=== PATIENT | female | born 1995 | race Caucasian/White ===

== ENCOUNTER 2017-04-29 19:53 | Emergency (ER) | payer MEDICAID, OTHER ==
[2017-04-29 20:18] LABS: Bilirubin Negative (Negative); Blood, Urine Negative (Negative); Glucose, Urine (Dipstick) Negative (Negative); Ketone, Urine Negative (Negative); Nitrite Negative (Negative); Protein, Urine (Dipstick) Negative (Neg-Trace); Urobilinogen 0.2 mg/dL (0.2-1.0)
[2017-04-29 20:50] LABS: #Basophils 0.1 thou/uL (0.0-0.2); #Lymphocytes 1.7 thou/uL (1.20-3.40); #Monocytes 0.3 thou/uL (0.11-0.59); #Neutrophils 5.6 thou/uL (1.40-6.50); %Basophils 0.7 % (0.0-1.0); %Eosinophils 0.5 % (0.0-10.0); %Lymphocytes 22.3 % (21.0-51.0); %Monocytes 3.9 % (0.0-10.0); Hematocrit 33.9 % (36.0-47.0); Mean Platelet Volume 6.6 fL (7.4-10.4); Red Blood Cell (RBC) Count 3.95 mill/uL (4.20-5.40); White Blood Cell (WBC) Count 7.6 thou/uL (4.8-10.8)
[2017-04-29 21:07] LABS: ALT (SGPT) Less than 7 U/L (8-55); AST (SGOT) 12 U/L (5-34); Alkaline Phosphatase 86 U/L (40-150); Anion Gap 9 mmol/L (10-20); BUN (Urea Nitrogen) 6 mg/dL (7.0-18.7); Bilirubin, Total 0.6 mg/dL (0.2-1.2); Calc. Creatinine Clearance 0 mL/min (70-130); Calcium 9.4 mg/dL (7.8-10.44); Carbon Dioxide 25 mmol/L (22-29); Chloride 107 mmol/L (98-107); Estimated GFR-MDRD Greater than 90; Globulin 3.5 g/dL (2.4-3.5); Protein, Total 7.2 g/dL (6.0-8.3)
--- NOTE | 2017-04-29 22:13 | ULT ---
EXAM: PELVIC ULTRASOUND 04/29/17 HISTORY: Pain x2 days. No bleeding. COMPARISON: None. TECHNIQUE: Transabdominal and endolabial imaging of the gravid uterus is performed. FINDINGS: A single intrauterine gestation, variable presentation. Anterior placenta. Placental tip is approxima tely 2.7 cm from the inner cervical os. Cervix measures approximately 4.9 cm. There are heart tones with a rate of 157 beats per minute. BIOMETRY: BPD 3.71 cm 17 weeks, 2 days Head circumference 14.95 cm 18 weeks, 0 days Abdominal circumference 13.42 cm 18 weeks, 6 days Femur length 2.76 cm 18 weeks, 3 days Average age by sonography is 18 weeks, 0 days. Estimated delivery date is 09/30/17. Estimated we ight is 247 grams. SURVEY: The following structures are adequately demonstrated: Four chamber heart, stomach, bladder, three ves ronan cord, cord insertion, nose and lips, cerebellum, lateral ventricle. Limited evaluation of the spi ne and kidneys. IMPRESSION: 1. Single intrauterine gestation as detailed above. There are heart tones with a rate of 1 57 beats per minute. 2. Average age by sonography is 18 weeks, 0 days. 3. Anterior placenta. Placenta appears to be low lying. Followup ultrasound is recommended. POS: [facility]
== END 2017-04-29 22:44 | disposition home or self-care (01) ==
LOC: ERS 19:53
DX: O99.89 Other specified diseases and conditions complicating pregnancy, childbirth and the puerperium (principal); R10.2 Pelvic and perineal pain; Z3A.19 19 weeks gestation of pregnancy
CPT/HCPCS: 36415; 76856; 80053; 81003; 84702; 85025; 86900; 86901

== ENCOUNTER 2017-08-15 21:45 | Day surgery (SDC) | payer BC, OTHER ==
[2017-08-15 23:12] LABS: #Eosinphils 0.1 thou/uL (0.0-0.7); #Lymphocytes 2.1 thou/uL (1.20-3.40); #Monocytes 0.7 thou/uL (0.11-0.59); #Neutrophils 9.7 thou/uL (1.40-6.50); %Basophils 0.3 % (0.0-1.0); %Eosinophils 0.4 % (0.0-10.0); %Lymphocytes 16.8 % (21.0-51.0); %Monocytes 5.6 % (0.0-10.0); %Neutrophils 76.8 % (42.0-75.0); Hemoglobin 11.3 g/dL (12.0-16.0); Mean Corpuscular HGB CONC 34.4 g/dL (32.0-36.0); Mean Corpuscular Hemoglobin 29.4 pg (27.0-31.0); Mean Corpuscular Volume 85.5 fl (81.0-99.0); Mean Platelet Volume 6.9 fL (7.4-10.4); Platelet Count 315 thou/uL (130-400); RBC Distribution Width 12.5 % (11.5-14.5); Red Blood Cell (RBC) Count 3.83 mill/uL (4.20-5.40); White Blood Cell (WBC) Count 12.6 thou/uL (4.8-10.8)
[2017-08-15 23:24] LABS: ALT (SGPT) 28 U/L (8-55); AST (SGOT) 74 U/L (5-34); Albumin 3.7 g/dL (3.5-5.0); Alkaline Phosphatase 211 U/L (40-150); Anion Gap 13 mmol/L (10-20); BUN (Urea Nitrogen) 5 mg/dL (7.0-18.7); Bilirubin, Total 0.8 mg/dL (0.2-1.2); Calc. Creatinine Clearance 0 mL/min (70-130); Calcium 9.9 mg/dL (7.8-10.44); Carbon Dioxide 23 mmol/L (22-29); Chloride 106 mmol/L (98-107); Estimated GFR-MDRD Greater than 90; Globulin 3.7 g/dL (2.4-3.5); Glucose 87 mg/dL (70-105); Lipase 21 U/L (8-78); Potassium 4.1 mmol/L (3.5-5.1); Protein, Total 7.4 g/dL (6.0-8.3); Sodium 138 mmol/L (136-145)
[2017-08-16 01:19] VITALS: BMI 34.7
--- NOTE | 2017-08-16 07:40 | ULT ---
PRELIMINARY REPORT/[facility]/EMERGENCY AFTER HOURS PROCEDURE: EXAM: US Abdomen Limited, Right Upper Quadrant EXAM DATE/TIME: Exam ordered 08/15/2017 11:46 PM CLINICAL HISTORY: 22 years old, female; Pain; Other: Chest/ ruq pain, elevated lfts; TECHNIQUE: Real-time ultrasound of the right upper quadrant with image documentation. COMPARISON: No relevant prior studies available. FINDINGS: Liver: Unremarkable. No mass. No intrahepatic bile duct dilation. Gallbladder: Cholelithiasis and gallbladder sludge. Gallbladder is distended. Sonographic Andrade's an d reported positive. No gallbladder wall thickening or pericholecystic fluid. Common bile duct: Unremarkable as visualized. No stones. No dilation. Pancreas: Unremarkable as visualized. Right kidney: Mild right hydronephrosis. No stones. IMPRESSION: 1. There is cholelithiasis and gallbladder sludge. Gallbladder is distended and sonographic Andrade si gn is reported as positive; however, there is no gallbladder wall thickening or pericholecystic fluid to convincingly indicate acute cholecystitis. 2. Mild right hydronephrosis. Thank you for allowing us to participate in the care of your patient. Dictated and Authenticated by: Adrian Jose MD 08/16/2017 12:27 AM Central Time ([place] & [place]) FINAL REPORT ULTRASOUND GALLBLADDER RIGHT UPPER QUADRANT: HISTORY: Pain. . COMPARISON: None. FINDINGS: Findings and impression are concordant with the preliminary report. Code QA. The right-sided hydro is mild to moderate. The gallbladder wall thickness is upper limits of normal. POS: [facility]
--- NOTE | 2017-08-16 07:45 | ER ---
DATE OF ENCOUNTER: 08/16/2017 PRIMARY OB: Dr. Kolb is at the [facility]. CHIEF COMPLAINT: Abdominal pain. HISTORY OF PRESENT ILLNESS: The patient is a 22-year-old female, G2, P1 with an intrauterine pregnan cy at 34 weeks and 3 days, who presented to the emergency room this morning with a right upper quadra nt abdominal pain and has been diagnosed with gallstones. After her workup, the patient was brought to Labor and Delivery just for assessment of the fetus. The patient denies any pain at the time of h er presentation to us and understands the findings and diagnosis from Labor and Delivery. Her NST de monstrates a fetus for abdominal pains and demonstrates fetus in the 130s with moderate nunu g-term variability, positive accelerations, no decelerations. Tocometer shows no contraction pattern with some possible irritability. NST is overall reactive and reassuring. The remainder of the navarro ent's medical care was performed down in the emergency room. The patient was discharged home with in structions to follow up with her primary OB as scheduled and to follow instructions and diet changes as recommended by the ER.
--- NOTE | 2017-08-28 21:27 | EKG ---
Test Reason : CHEST PAIN Blood Pressure : / mmHG Vent. Rate : 085 BPM Atrial Rate : 085 BPM P-R Int : 126 ms QRS Dur : 066 ms QT Int : 366 ms P-R-T Axes : 022 018 040 degrees QTc Int : 435 ms Normal sinus rhythm with sinus arrhythmia Normal ECG Baseline Artifact Present Confirmed by ROYA TIAN MD ([id number]), telegraph editor LARRY HESS ([id number] on 08/28/2017 9:27:27 PM Referred By: Confirmed By:ROYA TIAN MD
== END 2017-08-16 01:47 | disposition home or self-care (01) ==
LOC: ERS 21:45 → L&D/OP 08-16 00:48
PROVIDERS: ATTEND Obstetrics & Gynecology
DX: O99.613 Diseases of the digestive system complicating pregnancy, third trimester (principal); N13.2 Hydronephrosis with renal and ureteral calculous obstruction; Z3A.34 34 weeks gestation of pregnancy; Z79.899 Other long term (current) drug therapy
CPT/HCPCS: 76705; 80053; 83690; 85025; 93005; 99282

== ENCOUNTER 2017-09-24 22:26 | Emergency (ER) | payer OTHER ==
[2017-09-24 23:09] LABS: #Basophils 0.1 thou/uL (0.0-0.2); #Eosinphils 0.1 thou/uL (0.0-0.7); #Lymphocytes 2.3 thou/uL (1.20-3.40); #Monocytes 0.5 thou/uL (0.11-0.59); #Neutrophils 5.4 thou/uL (1.40-6.50); %Basophils 0.6 % (0.0-1.0); %Eosinophils 1.3 % (0.0-10.0); %Lymphocytes 27.2 % (21.0-51.0); %Monocytes 5.9 % (0.0-10.0); %Neutrophils 65.1 % (42.0-75.0); Hemoglobin 12.6 g/dL (12.0-16.0); Mean Corpuscular HGB CONC 33.9 g/dL (32.0-36.0); Mean Corpuscular Hemoglobin 28.8 pg (27.0-31.0); Mean Corpuscular Volume 85.2 fl (81.0-99.0); Mean Platelet Volume 6.1 fL (7.4-10.4); Platelet Count 427 thou/uL (130-400); RBC Distribution Width 12.8 % (11.5-14.5); Red Blood Cell (RBC) Count 4.37 mill/uL (4.20-5.40); White Blood Cell (WBC) Count 8.3 thou/uL (4.8-10.8)
[2017-09-24 23:19] LABS: PTT 29.2 SEC (22.9-36.1); Prothrombin Time 13.3 SEC (12.0-14.7)
[2017-09-24 23:33] LABS: ALT (SGPT) 9 U/L (8-55); AST (SGOT) 14 U/L (5-34); Alkaline Phosphatase 139 U/L (40-150); Anion Gap 14 mmol/L (10-20); BUN (Urea Nitrogen) 10 mg/dL (7.0-18.7); Bilirubin, Total 0.5 mg/dL (0.2-1.2); Calc. Creatinine Clearance 0 mL/min (70-130); Calcium 9.4 mg/dL (7.8-10.44); Carbon Dioxide 20 mmol/L (22-29); Chloride 110 mmol/L (98-107); Estimated GFR-MDRD Greater than 90; Globulin 3.4 g/dL (2.4-3.5); Glucose 83 mg/dL (70-105); Potassium 3.9 mmol/L (3.5-5.1); Protein, Total 7.4 g/dL (6.0-8.3); Sodium 140 mmol/L (136-145)
[2017-09-25] MEDS ORDERED: hydrALAZINE 20 MG/ML VIAL ONE (00:25)
[2017-09-25 00:48] LABS: Bilirubin Negative (Negative); Blood, Urine Large (Negative); Clarity CLEAR (Clear); Glucose, Urine (Dipstick) Negative (Negative); Leukocyte Large (Negative); Nitrite Negative (Negative); Protein, Urine (Dipstick) Negative (Neg-Trace); Specific Gravity, Urine 1.008 (1.002-1.036); Urobilinogen 0.2 mg/dL (0.2-1.0); pH, Urine 6.5 (5.0-9.0)
[2017-09-25 00:51] LABS: Bacteria/HPF None Seen HPF (None Seen); Hyaline Casts/LPF 0-3 HYALINE CAST LPF (0-3 Hyaline); Pathc Cast-AUWi Flag 0.29 (0-2.49); RBC/HPF 21-50 HPF (0-3); Squamous Epithelial 0-3 HPF (0-3); WBC/HPF 21-50 HPF (0-3)
[2017-09-25] MEDS ORDERED: NIFEdipine 10 MG CAP PO SCH (01:30)
[2017-09-25] MEDS ORDERED: Cephalexin 250 MG CAP ONE (01:32)
== END 2017-09-25 02:15 | disposition home or self-care (01) ==
LOC: ERS 22:26
DX: O86.22 Infection of bladder following delivery (principal); O16.5 Unspecified maternal hypertension, complicating the puerperium; O99.53 Diseases of the respiratory system complicating the puerperium; J45.909 Unspecified asthma, uncomplicated
CPT/HCPCS: 36415; 80053; 81003; 81015; 85025; 85384; 85610; 85730; 87086; 93005; J0360

== ENCOUNTER 2018-02-28 17:33 | Emergency (ER) | payer BC, OTHER ==
[2018-02-28 17:59] LABS: #Basophils 0.1 thou/uL (0.0-0.2); #Eosinphils 0.1 thou/uL (0.0-0.7); #Monocytes 0.4 thou/uL (0.11-0.59); #Neutrophils 6.6 thou/uL (1.40-6.50); %Basophils 0.6 % (0.0-1.0); %Lymphocytes 22.1 % (21.0-51.0); %Monocytes 4.5 % (0.0-10.0); %Neutrophils 71.9 % (42.0-75.0); Hemoglobin 13.8 g/dL (12.0-16.0); Mean Corpuscular HGB CONC 33.9 g/dL (32.0-36.0); Mean Corpuscular Hemoglobin 29.1 pg (27.0-31.0); Mean Corpuscular Volume 85.7 fL (78.0-98.0); Mean Platelet Volume 6.5 fL (7.4-10.4); Platelet Count 409 thou/uL (130-400); RBC Distribution Width 11.2 % (11.5-14.5); Red Blood Cell (RBC) Count 4.76 mill/uL (4.20-5.40); White Blood Cell (WBC) Count 9.1 thou/uL (4.8-10.8)
[2018-02-28 18:04] LABS: Bilirubin Negative (Negative); Blood, Urine Large (Negative); Clarity CLEAR (Clear); Glucose, Urine (Dipstick) Negative (Negative); Leukocyte Small (Negative); Nitrite Negative (Negative); Protein, Urine (Dipstick) Negative (Neg-Trace)
[2018-02-28 18:06] LABS: Bacteria/HPF None Seen HPF (None Seen); Hyaline Casts/LPF 0-3 HYALINE CAST LPF (0-3 Hyaline); RBC/HPF GREATER THAN 50-TNTC HPF (0-3); Squamous Epithelial 0-3 HPF (0-3)
[2018-02-28 18:10] LABS: Pregnancy Test - Urine (BHCG) Negative (Negative); Pregu Control Background? CLEAR/WHITE (CLR/WHITE); Pregu Control Bar Appear? YES (CONTROL BAR)
[2018-02-28 18:18] LABS: ALT (SGPT) 32 U/L (8-55); AST (SGOT) 57 U/L (5-34); Albumin 4.5 g/dL (3.5-5.0); Alkaline Phosphatase 122 U/L (40-150); Anion Gap 13 mmol/L (10-20); BUN (Urea Nitrogen) 13 mg/dL (7.0-18.7); Bilirubin, Total 1.1 mg/dL (0.2-1.2); Calc. Creatinine Clearance 0 mL/min (70-130); Calcium 9.8 mg/dL (7.8-10.44); Carbon Dioxide 26 mmol/L (22-29); Chloride 103 mmol/L (98-107); Estimated GFR-MDRD Greater than 90; Globulin 3.6 g/dL (2.4-3.5); Glucose 99 mg/dL (70-105); Lipase 21 U/L (8-78); Protein, Total 8.1 g/dL (6.0-8.3); Sodium 138 mmol/L (136-145)
[2018-02-28] MEDS ORDERED: Morphine 4 MG/ML VIAL ONE (18:30)
[2018-02-28] MEDS ORDERED: Lidocaine Viscous Sol 2% 15 ml UD Cup ONE (18:51)
[2018-02-28] MEDS ORDERED: Mag-Al 1200 mg/1200 mg/30 ML UDCUP ONE (18:51)
== END 2018-02-28 19:45 | disposition home or self-care (01) ==
LOC: ERS 17:33
DX: R10.12 Left upper quadrant pain (principal); R10.11 Right upper quadrant pain; R10.13 Epigastric pain; M54.5 Low back pain; M54.6 Pain in thoracic spine; I10 Essential (primary) hypertension
CPT/HCPCS: 36415; 80053; 81003; 81015; 81025; 83690; 85025; 96374; J2270

== ENCOUNTER 2018-05-23 13:16 | Emergency (ER) | payer BC ==
[2018-05-23] MEDS ORDERED: Mag-Al 1200 mg/1200 mg/30 ML UDCUP ONE (14:04)
[2018-05-23] MEDS ORDERED: Lidocaine Viscous Sol 2% 15 ml UD Cup ONE (14:04)
[2018-05-23 14:36] LABS: #Lymphocytes 1.9 thou/uL (1.20-3.40); #Monocytes 0.3 thou/uL (0.11-0.59); #Neutrophils 4.6 thou/uL (1.40-6.50); %Basophils 0.6 % (0.0-1.0); %Eosinophils 0.6 % (0.0-10.0); %Monocytes 3.6 % (0.0-10.0); %Neutrophils 67.2 % (42.0-75.0); Hemoglobin 13.3 g/dL (12.0-16.0); Mean Corpuscular HGB CONC 34.7 g/dL (32.0-36.0); Mean Corpuscular Hemoglobin 29.3 pg (27.0-31.0); Mean Corpuscular Volume 84.4 fL (78.0-98.0); Mean Platelet Volume 6.8 fL (7.4-10.4); Platelet Count 313 thou/uL (130-400); RBC Distribution Width 11.6 % (11.5-14.5); Red Blood Cell (RBC) Count 4.53 mill/uL (4.20-5.40); White Blood Cell (WBC) Count 6.9 thou/uL (4.8-10.8)
[2018-05-23 14:53] LABS: ALT (SGPT) 10 U/L (8-55); AST (SGOT) 14 U/L (5-34); Albumin 4.3 g/dL (3.5-5.0); Alkaline Phosphatase 78 U/L (40-150); Anion Gap 12 mmol/L (10-20); BUN (Urea Nitrogen) 10 mg/dL (7.0-18.7); Bilirubin, Total 0.8 mg/dL (0.2-1.2); Calc. Creatinine Clearance 0 mL/min (70-130); Calcium 9.6 mg/dL (7.8-10.44); Carbon Dioxide 23 mmol/L (22-29); Chloride 104 mmol/L (98-107); Estimated GFR-MDRD Greater than 90; Globulin 3.6 g/dL (2.4-3.5); Glucose 90 mg/dL (70-105); Lipase 14 U/L (8-78); Protein, Total 7.9 g/dL (6.0-8.3); Sodium 135 mmol/L (136-145)
--- NOTE | 2018-05-23 15:38 | RAD ---
PORTABLE CHEST: 05/23/2018 PROVIDED CLINICAL HISTORY: Chest pain. FINDINGS: The cardiac silhouette appears enlarged. This could be at least partially on the basis of the portab le technique. No focal consolidation, pleural fluid, or pneumothorax apparent. IMPRESSION: No evidence for an acute cardiopulmonary process. POS: [facility]
== END 2018-05-23 16:35 | disposition home or self-care (01) ==
LOC: ERS 13:16
DX: O99.89 Other specified diseases and conditions complicating pregnancy, childbirth and the puerperium (principal); R07.2 Precordial pain; O99.511 Diseases of the respiratory system complicating pregnancy, first trimester; J45.909 Unspecified asthma, uncomplicated; O99.345 Other mental disorders complicating the puerperium; F53.0 Postpartum depression; Z3A.12 12 weeks gestation of pregnancy
CPT/HCPCS: 71045; 80053; 83690; 84484; 85025; 93005

== ENCOUNTER 2018-10-08 01:37 | Day surgery (SDC) | payer BC ==
[2018-10-08 02:07] VITALS: BP 122/58; TEMP 99.1; BMI 35.4
--- NOTE | 2018-10-08 02:44 | PDOC.LDHP ---
Labor and Delivery H&P Chief complaint: contractions HPI: 23 yo @ 31.5 presents from [facility] for painful contractions. Pt reports ctx started around 6pm and were frequent and painful. She went to [facility] and received 2LIVF. She reports complete cessation of contractions currently. Denies LOF, vaginal bleeding, vaginal discharge. Reports pos movement. Current gestational age (weeks): 31 (31+5) Grav: 3 Para: 2 Current complications: none Current medications: pre- vitamins Previous surgical history: none Allergies/Adverse Reactions: Allergies Allergy/AdvReac Type Severity Reaction Status Date / Time No Known Allergies Allergy Verified 10/08/18 02:09 Social history: none - Physical Exam Vital signs reviewed and normal: yes General: NAD Heart: RRR Lungs: nonlabored breathing Abdomen: NTTP Extremeties: no edema FHT: category 1 - Vaginal Exam cm dilated: 1 Effacement: 50% Station: -2 - OB Labs Blood type: unknown RH: unknown Antibody Screen: unknown HIV: unknown RPR: unknown HEPSAg: unknown 1 hour GCT: unknown GBS: unknown - Plan Plan: observation in L&D -: 1) contractions: - pt has h/o gonorrhea pos this and rxd in june with negative test of cure - currently denies contractions and none on monitor - po hydrate, EFM - cervical check /-2, reactive strip - likely ok for DC to home Addendum - Attending - Attending Attestation Date/Time: 10/08/18 0824 I personally evaluated the patient and discussed the management with Dr. Valle. I agree with the History, Examination, Assessment and Plan documented above.
== END 2018-10-08 03:18 | disposition home health service (06) ==
LOC: L&D/OP 01:37
PROVIDERS: ATTEND Obstetrics & Gynecology
DX: O47.03 False labor before 37 completed weeks of gestation, third trimester (principal); Z3A.31 31 weeks gestation of pregnancy
CPT/HCPCS: 99283

== ENCOUNTER 2018-11-28 05:30 | Inpatient (IN) | payer BC ==
[2018-11-28] MEDS ORDERED: Promethazine HCl 25 MG/ML VIAL IM PRN ×2 (06:29→19:41)
[2018-11-28] MEDS ORDERED: Butorphanol Tartrate 1 MG/ML VIAL SLOW IVP PRN (06:29)
[2018-11-28] MEDS ORDERED: Ondansetron PF 4 MG/2 ML Vial IVP PRN ×2 (06:29→19:41)
[2018-11-28] MEDS ORDERED: Ibuprofen 800 MG TAB PO PRN (06:29)
[2018-11-28] MEDS ORDERED: HYDROcodone/Acetaminophen 5/325 mg Tablet PO PRN (06:29)
[2018-11-28] MEDS ORDERED: hydrALAZINE 20 MG/ML VIAL SLOW IVP PRN (06:29)
[2018-11-28] MEDS ORDERED: Lidocaine 1% (PF) 30 ML VIAL SC PRN (06:29)
[2018-11-28] MEDS ORDERED: NS / Oxytocin 40 units/1000ml 1,000 ML IV PRN (06:29)
[2018-11-28] MEDS ORDERED: NS w/ Oxytocin 10 units 500 ML IV SCH (06:30)
[2018-11-28] MEDS ORDERED: Lactated Ringer's 1,000 ML IV SCH (06:30)
[2018-11-28 06:45] VITALS: BMI 36.2
[2018-11-28] MEDS: Lactated Ringer's 1,000 ML IV SCH (06:54)
[2018-11-28 06:55] LABS: Mean Corpuscular HGB CONC 32.7 g/dL (32.0-36.0); Mean Corpuscular Hemoglobin 27.5 pg (27.0-31.0); Mean Platelet Volume 7.8 fL (7.4-10.4); Platelet Count 306 thou/uL (130-400); RBC Distribution Width 12.4 % (11.5-14.5); Red Blood Cell (RBC) Count 3.99 mill/uL (4.20-5.40); White Blood Cell (WBC) Count 13.2 thou/uL (4.8-10.8)
[2018-11-28 07:39] LABS: HBSAg Index 0.26 S/CO (0-0.99); Hep B Surf Ag Non-Reactive S/CO (NonReactive); Syphilis Antibody Nonreactive (Nonreactive); Syphilis Antibody Index 0.04 S/CO (<1.00 Non-Reactive)
[2018-11-28] MEDS ORDERED: Bupivacaine 0.25% HCL 30 ML VIAL ONE (11:11)
[2018-11-28] MEDS ORDERED: Acetaminophen 500 MG TAB PO SCH (13:30)
[2018-11-28] MEDS ORDERED: Fentanyl 4 mcg/Bup 0.1% Cadd 100 ML ONE (18:54)
--- NOTE | 2018-11-28 19:27 | PDOC.LDHP ---
Labor and Delivery H&P Chief complaint: scheduled induction Current gestational age (weeks): 39 Due date: 12/05/18 Grav: 3 Para: 2 Current complications: none Abnormal US findings: No Current medications: pre- vitamins Allergies/Adverse Reactions: Allergies Allergy/AdvReac Type Severity Reaction Status Date / Time Latex, Natural Rubber Allergy Verified 11/28/18 06:36 Social history: none - Physical Exam Vital signs reviewed and normal: yes General: NAD, resting, breathing through contractions Heart: RRR Lungs: CTAB Abdomen: gravid Extremeties: no edema FHT: category 1 - Assessment L&D Assessment: elective induction at term - Plan Plan: admit to L&D, labor augmentation if indicated
[2018-11-28] MEDS ORDERED: Acetaminophen 325 MG TAB PO PRN (19:41)
[2018-11-28] MEDS ORDERED: diphenhydrAMINE 50 MG/ML VIAL IVP PRN (19:41)
[2018-11-28] MEDS ORDERED: Naloxone HCl 0.4 mg/ml Vial IVP PRN ×2 (19:41)
[2018-11-28] MEDS ORDERED: ePHEDrine/0.9% NaCl/PF SYRINGE 50 mg/10 ml SLOW IVP PRN (19:41)
[2018-11-28] MEDS ORDERED: Lactated Ringer's 500 ML IV PRN (19:41)
[2018-11-28] MEDS ORDERED: Communication Order-Pharmacy FS SCH (19:45)
[2018-11-28] MEDS ORDERED: Fentanyl 4 mcg/Bupivacaine 0.1% Cassette 100 ML EPIDURAL SCH (19:45)
[2018-11-29] MEDS ORDERED: Misoprostol 200 MCG TAB VAG PRN (00:21)
[2018-11-29] MEDS ORDERED: Lanolin Ointment 7 GM TUBE TOP PRN (00:21)
[2018-11-29] MEDS ORDERED: Benzocaine-Menthol 82.5 ML CAN TOP PRN (00:21)
[2018-11-29] MEDS ORDERED: Ondansetron PF 4 MG/2 ML Vial IVP PRN (00:21)
[2018-11-29] MEDS ORDERED: HYDROcodone/Acetaminophen 5/325 mg Tablet PO PRN ×2 (00:21)
[2018-11-29] MEDS ORDERED: Preparation H Ointment 28 GM TUBE PR PRN (00:21)
[2018-11-29] MEDS ORDERED: Milk Of Magnesia 30 ML UDCUP PO PRN (00:21)
[2018-11-29] MEDS ORDERED: Promethazine HCl 25 MG/ML VIAL IM PRN (00:21)
[2018-11-29] MEDS ORDERED: Acetaminophen/Codeine 30-300mg Tablet PO PRN (00:21)
[2018-11-29] MEDS ORDERED: NS / Oxytocin 40 units/1000ml 1,000 ML IV SCH ×2 (00:21→03:15)
[2018-11-29] MEDS ORDERED: Varicella virus, LIVE 0.5 ML VIAL SC ONE (00:21)
[2018-11-29] MEDS ORDERED: Zolpidem Tartrate 5 MG TAB PO PRN (00:21)
[2018-11-29] MEDS ORDERED: hydrALAZINE 20 MG/ML VIAL SLOW IVP PRN (00:21)
[2018-11-29] MEDS ORDERED: Bisacodyl 10 MG SUPP PR PRN (00:21)
[2018-11-29] MEDS ORDERED: Measles/Mumps/Rubella 10 MCG/0.5 ML VIAL SC ONE (00:21)
[2018-11-29] MEDS ORDERED: Methylergonovine 0.2 MG/ML VIAL IM PRN (00:21)
[2018-11-29] MEDS ORDERED: Adacel (T-DAP) 0.5 ML SYRINGE IM ONE (00:21)
[2018-11-29] MEDS ORDERED: diphenhydrAMINE 25 MG CAP PO PRN (00:21)
[2018-11-29] MEDS: Ibuprofen 800 MG TAB PO SCH ×4 (00:28→21:23)
[2018-11-29] MEDS: Lactated Ringer's 1,000 ML IV SCH (01:10)
[2018-11-29 06:44] LABS: #Basophils 0.1 thou/uL (0.0-0.2); #Eosinphils 0.1 thou/uL (0.0-0.7); #Lymphocytes 2.4 thou/uL (1.20-3.40); #Monocytes 0.6 thou/uL (0.11-0.59); #Neutrophils 9.6 thou/uL (1.40-6.50); %Basophils 0.4 % (0.0-1.0); %Eosinophils 0.5 % (0.0-10.0); %Monocytes 4.9 % (0.0-10.0); %Neutrophils 75.2 % (42.0-75.0); Hemoglobin 9.9 g/dL (12.0-16.0); Mean Corpuscular HGB CONC 33.4 g/dL (32.0-36.0); Mean Corpuscular Hemoglobin 28.9 pg (27.0-31.0); Mean Corpuscular Volume 86.6 fL (78.0-98.0); Mean Platelet Volume 7.8 fL (7.4-10.4); Platelet Count 237 thou/uL (130-400); RBC Distribution Width 12.4 % (11.5-14.5); Red Blood Cell (RBC) Count 3.43 mill/uL (4.20-5.40); White Blood Cell (WBC) Count 12.8 thou/uL (4.8-10.8)
[2018-11-29] MEDS: Ferrous Sulfate 325 MG TAB PO SCH ×2 (09:29→18:48)
[2018-11-29] MEDS: Prenatal Vitamin 1 TAB PO SCH (09:30)
[2018-11-29] MEDS: Docusate Calcium (SURFAK) 240 MG CAP PO SCH ×2 (09:30→21:21)
--- NOTE | 2018-11-29 23:03 | PDOC.PP ---
Post Progress Note Post Day #: 1 PO intake tolerated: yes Flatus: yes Ambulation: yes Vital Signs (12 hours) Temp Pulse Resp BP Pulse Ox 11/29/18 20:12 98.1 F 79 18 127/65 98 11/29/18 16:44 98.0 F 66 16 116/60 99 11/29/18 11:32 97.8 F 66 20 117/60 Weight Weight 198 lb - Physical Examination General: NAD Cardiovascular: no m/r/g, RRR Respiratory: clear to auscultation bilaterally Abdominal: + bowel sounds, lochia, no distention Extremities: negative homans (B) Skin: CS incision dry & intact, no rash Neurological: no gross focal deficits Psychiatric: A&Ox3, normal affect Result Diagrams: 11/29/18 05:56 Additional Labs: Post Labs Blood Type A NEGATIVE 11/28/18 06:42 Hep Bs Antigen Non-Reactive S/CO (NonReactive) 11/28/18 06:42
--- NOTE | 2018-11-30 03:06 | DN ---
DATE OF PROCEDURE: 11/28/2018 TIME OF SERVICE: At 2029 hours central daylight savings time. PREOPERATIVE DIAGNOSIS: Intrauterine at 39 weeks and 0 days with a term elective induction of labor. POSTOPERATIVE DIAGNOSIS: Intrauterine at 39 weeks and 0 days with a term elective induction of labor. PROCEDURE PERFORMED: Spontaneous vaginal delivery over a first-degree laceration of the perineum. FINDINGS: Viable male weighing 3028 g or 6 pounds 11 ounces, Apgars 8 and 9. QUANTITATIVE BLOOD LOSS: 160 mL. COMPLICATIONS: None. PROCEDURE IN DETAIL: The patient presented to [facility] where she was admitted to the labor and delivery service. The patient underwent a normal and uneventful labor with normal cervical dilatation until she was found to be completely dilated. She was then allowed to push and was able to bring the baby down and delivered the baby in a vertex presentation without difficulties. Once the head delivered in occiput anterior position, the shoulders followed spontaneously along with the rest of the baby's body. Once out the baby's mouth and nose were bulb suctioned. The cord was clamped and cut and baby was handed to waiting attendants. Cord blood was collected. Gentle fundal massage was performed and the placenta delivered intact without problems. Hemostasis was assured. Quantitative blood loss was calculated. Inspection of the cervix, vaginal vault, and perineum did not reveal any lacerations needing suturing. Once again, hemostasis was within normal limits and the patient was allowed to recover in the labor and delivery room. Baby went to nursery. Job ID: [id number]
[2018-11-30] MEDS: Ibuprofen 800 MG TAB PO SCH ×2 (05:26→09:51)
[2018-11-30 08:35] VITALS: BP 112/70; TEMP 98
[2018-11-30] MEDS: Docusate Calcium (SURFAK) 240 MG CAP PO SCH (09:51)
[2018-11-30] MEDS: Prenatal Vitamin 1 TAB PO SCH (09:51)
[2018-11-30] MEDS: Ferrous Sulfate 325 MG TAB PO SCH (09:52)
== END 2018-11-30 13:25 | disposition home or self-care (01) | DRG 807 ==
LOC: L&D 06:13 → 3SW 23:34
PROVIDERS: ADMIT Obstetrics & Gynecology; ATTEND Obstetrics & Gynecology
PROC: 10E0XZZ Delivery of Products of Conception, External Approach (ICD-10-PCS; principal; 2018-11-29)
PROC: 3E033VJ Introduction of Other Hormone into Peripheral Vein, Percutaneous Approach (ICD-10-PCS; 2018-11-29)
DX: O70.0 First degree perineal laceration during delivery (principal); Z37.0 Single live birth; Z3A.39 39 weeks gestation of pregnancy
CPT/HCPCS: 36415; 51702; 85025; 85027; 85461; 86780; 86850; 86870; 86900; 86901; 87340; 90384; 96372; J2001; J2405; J2590; S0020

== ENCOUNTER 2018-12-13 20:28 | Emergency (ER) | payer BC ==
[2018-12-13] MEDS ORDERED: Metoclopramide HCl 10 MG/2 ML VIAL ONE (22:43)
[2018-12-13] MEDS ORDERED: Ketorolac Tromethamine 30 MG/ML VIAL ONE (22:43)
[2018-12-13] MEDS ORDERED: diphenhydrAMINE 50 MG/ML VIAL ONE ×2 (22:43→22:47)
== END 2018-12-14 01:05 | disposition home or self-care (01) ==
LOC: ERS 20:28
DX: O90.89 Other complications of the puerperium, not elsewhere classified (principal); R51 Headache; O99.53 Diseases of the respiratory system complicating the puerperium; O16.5 Unspecified maternal hypertension, complicating the puerperium; O99.345 Other mental disorders complicating the puerperium; F53.0 Postpartum depression; Z79.899 Other long term (current) drug therapy
CPT/HCPCS: 96361; 96365; 96366; 96375; J1200; J1885; J2765

== ENCOUNTER 2019-07-16 01:38 | Emergency (ER) | payer BC | END 2019-07-16 02:26 | disposition left against medical advice (07) | LOC: ERS 01:38 | DX: Z53.21 Procedure and treatment not carried out due to patient leaving prior to being seen by health care provider (principal) ==

== ENCOUNTER 2019-12-24 20:07 | Emergency (ER) | payer BC, OTHER, SELFPAY ==
[2019-12-25 11:55] LABS: SARS-CoV-2 MS2 Positive; SARS-CoV-2 N Gene Negative; SARS-CoV-2 S Gene Negative; SARS-CoV-2 by NAA Not Detected (NotDetected); SARS-CoV-2 orf1ab Negative
== END 2019-12-24 20:53 | disposition home or self-care (01) ==
LOC: ERS 20:07
DX: Z20.828 Contact with and (suspected) exposure to other viral communicable diseases (principal); R50.9 Fever, unspecified; J45.909 Unspecified asthma, uncomplicated; I10 Essential (primary) hypertension
CPT/HCPCS: 87635; 99283; U0003